=== PATIENT | female | born 1965 | race Caucasian/White ===

== ENCOUNTER → 2019-11-04 | Outpatient (CLI) | payer BC ==
[~2019-11-04] MED LIST: AMLO-504 PO; DOCU-143 PO; HYDR-4226 PO; TAMO20TA2 PO
--- NOTE | 2019-11-04 13:16 | Diagnostic Imaging Report ---
INDICATION: Right upper quadrant abdominal pain. COMPARISON: None. TECHNIQUE: Liver/gallbladder ultrasound. FINDINGS: The liver is normal in size, shape, and echotexture. There are no focal lesions. No intra or extrahepatic biliary dilatation is present. The common bile duct is not dilated and measures 4 mm. Multiple large gallstones are noted within the lumen of the gallbladder. These show expected posterior acoustic shadowing and appear to be mobile. There may be some superimposed gallbladder sludge as well. Underlying polyps may be obscured. There is no gallbladder wall thickening or pericholecystic free fluid to suggest acute cholecystitis. The pancreas is not visualized due to overlying bowel gas. There is no ascites. The right kidney measures approximately 8.4 cm in length and has an otherwise normal appearance. The visualized portions of the IVC and aorta are normal. IMPRESSION: Multiple gallstones and probable gallbladder sludge but no sonographic evidence of acute cholecystitis. Dictated by: Dictated on workstation # [id number]
== END ==
LOC: RAD 11:54
PROVIDERS: ATTEND Nurse Practitioner Family
DX: K80.20 Calculus of gallbladder without cholecystitis without obstruction (principal)
CPT/HCPCS: 76705

== ENCOUNTER 2019-11-05 15:27 | Outpatient (CLI) | payer BC ==
[~2019-11-05] VITALS: Ht 149 cm; Wt 75.0 kg
[2019-11-05] MEDS ORDERED: TAMO20TA2 PO (15:52)
[2019-11-05] MEDS ORDERED: AMLO-504 PO (15:52)
[2019-11-06] MEDS ORDERED: HYDR-4226 PO (10:39)
[2019-11-06] MEDS ORDERED: DOCU-143 PO (10:39)
== END 2019-11-05 16:02 | disposition home or self-care (01) ==
LOC: PREOP 15:27
PROVIDERS: ATTEND Surgery
DX: Z01.818 Encounter for other preprocedural examination (principal)

== ENCOUNTER 2019-11-06 07:55 | Day surgery (SDC) | payer BC ==
[2019-11-06] VITALS (12 sets, daily range): BP systolic 107–129; BP diastolic 49–91
[~2019-11-06] VITALS: Ht 149 cm; Wt 75.0 kg
[~2019-11-06 07:55] MED LIST changes: -DOCU-143 PO; -HYDR-4226 PO
--- OUTSIDE RECORDS SUMMARY | 2019-11-06 07:59 | XMS REPORT | CCD ---
Author Author Letitia Seay Organization Irene Johnson MD, [facility] Address [address] [place] [address] Phone Care Team Providers Care Cooker Process Cheese Name Role Phone PP Unavailable CCM Unavailable Summary Purpose Interface Exchange Insurance Providers Payer name Policy type / Coverage type Covered green party ID Effective Begin Date Effective End Date Blue Cross Blue [facility] e Cross/Blue Shield [id number] 2018 Un known Family history Father Diagnosis Age At Onset Hyperlipidemia Unknown Hypertension Unknown Mother Diagnosis Age At Onset No Family Disease Entered N/A Brother Diagnosis Age At Onset Diabetes mellitus Type 2 Unknown Social History Social History Element Codes Description Effective Dates Marital status Unknown M genet denise 08/27/2018 Number of children Unknown 2 08/27/[address]: 410308985 Never smoker 08/27/[address]: 231083398 Never drinks alcohol 08/27/2018 Allergies, Adverse Reactions, Alerts Substance Reaction Codes Entered Date Inactivated Date Status Penicillin Unknown 08/27/2018 No In active Date Active Past Medical History Illness Codes Condition Status Onset Date Resolved Date Essential (primary) hypertension ICD-9: 401.1 ICD-10: I10 Active 08/27/2018 Unknown Problems Condition Codes Effectiv e Dates Condition Status Essential (primary) hypertension ICD-9: 401.1 ICD-10: I10 08/27/2018 Active Medications Medication Codes Instruc tions Start Date Stop Date Sta tus Fill Instructions amlodipine 5 mg-ramiro zepril 10 mg capsule RxNorm: 358868 1 Capsule(s) PO daily 08/27/2018 08/21/2019 Ac tive tamoxifen 20 mg tablet RxNorm: 357788 1 Tablet(s) PO daily No Start Date Active amlodipine 5 mg-ramiro zepril 10 mg capsule RxNorm: 348719 1 Capsule(s) PO daily No Start Date 08/26/2018 Inactive Medication Administered No Medication Administered data Immunizations No Immunization data Assessments Condition Codes Effectiv e Dates Essential (primary) hypertension ICD -10: I10 ICD-9: 401.1 08/27/2018 Reason For Visit Reason For Visit Effective Dates Notes medication follow up 08/27/2018 Results No Results data Review of Systems System Result Effective Dates Constitutional No recent illness 08/27/2018 Constitutional No chills 08/27/2018 Constitutional No diaphoresis 08/27/2018 Constitutional No fever 08/27/2018 Eyes No eye erythema Ears/Nose/Throat/Neck No nasal allergies 08/27/2018 Ears/Nose/Throat/Neck No nasal discharge 08/27/2018 Cardiovascular No chest pain/pressure 08/27/2018 Cardiovascular No dyspnea 08/27/2018 Respiratory No chest congestion 08/27/2018 Respiratory No cough Gastrointestinal No abdominal pain 08/27/2018 Gastrointestinal No constipation 08/27/2018 Gastrointestinal No diarrhea 08/27/2018 Gastrointestinal No hematochezia 08/27/2018 Gastrointestinal No melena 08/27/2018 Gastrointestinal No nausea 08/27/2018 Gastrointestinal No vomiting 08/27/2018 Musculoskeletal No joint complaint 08/27/2018 Dermatologic No rash Neurologic No alteration of consciousness 08/27/2018 Neurologic No mental status change 08/27/2018 Physical Exam Exam Name System Name It em Name Status Result Effective Dates Notes Full Exam - General 1994 Constitutional general appearance Overall: well developed 08/27/2018 None Full Exam - General 1994 Constitutional general appearance Overall: in no acute distress 08/27/2018 None Full Exam - General 1994 Constitutional general appearance Overall: well nourished 08/27/2018 None Full Exam - General 1994 Eyes conjunctiva/eyelids Overall: conjunctiva clear 08/27/2018 None Full Exam - General 1994 Eyes conjunctiva/eyelids Overall: cornea clear 08/27/2018 None Full Exam - General 1994 Eyes conjunctiva/eyelids Overall: eyelids normal 08/27/2018 None Full Exam - General 1994 Eyes pupils and irises Overall: pupils equal, round, reactive to light and accomodation 08/27/2018 None Full Exam - General 1994 Ears/Nose/Throat otoscopic exam Overall: external auditory canals clear 08/27/2018 None Full Exam - General 1994 Ears/Nose/Throat otoscopic exam Overall: tympanic membranes clear 08/27/2018 None Full Exam - General 1994 Ears/Nose/Throat lips/teeth/gingiva Overall: benign lips 08/27/2018 None Full Exam - General 1994 Ears/Nose/Throat oral cavity/pharynx/larynx Overall: oral mucosa clear 08/27/2018 None Full Exam - General 1994 Ears/Nose/Throat oral cavity/pharynx/larynx Overall: oropharyngeal mucosa clear 08/27/2018 None Full Exam - General 1994 Respiratory auscultation Overall: breath sounds clear bilaterally 08/27/2018 None Full Exam - General 1994 Respiratory respiratory effort/rhythm Overall: no retractions 08/27/2018 None Full Exam - General 1994 Respiratory respiratory effort/rhythm Overall: normal rate 08/27/2018 None Full Exam - General 1994 Cardiovascular extremities Overall: no clubbing 08/27/2018 None Full Exam - General 1994 Cardiovascular auscultation of heart Overall: regular rate 08/27/2018 None Full Exam - General 1994 Cardiovascular auscultation of heart Overall: normal heart sounds 08/27/2018 None Full Exam - General 1994 Abdomen abdominal exam Overall: no tenderness 08/27/2018 None Full Exam - General 1994 Abdomen abdominal exam Overall: normal bowel sounds 08/27/2018 None Full Exam - General 1994 Musculoskeletal gait and station Overall: normal gait 08/27/2018 None Full Exam - General 1994 Musculoskeletal gait and station Overall: normal station 08/27/2018 None Full Exam - General 1994 Musculoskeletal head and neck Overall: head atraumatic 08/27/2018 None Full Exam - General 1994 Neurologic cranial nerves Overall: crainial nerves 2 - 12 grossly intact 08/27/2018 None Full Exam - General 1994 Psychiatric orientation/consciousness Overall: oriented to person, place and time 08/27/2018 None Full Exam - General 1994 Psychiatric mood and affect Overall: normal mood and affect 08/27/2018 None Full Exam - General 1994 Psychiatric appearance Overall: well-groomed, good eye contact 08/27/2018 None Full Exam - General 1994 Chest/Breast breast/chest inspection Breast symmetry: asymmetric 08/27/2018 left mastectomy Procedures No Procedures data Vital Signs Date Vital 08/27/2018 Blood Pressure 1: 124/64 Code: 8480-6 BMI: 34.3 Code: 04508-8 Heart Rate 1: 74 bpm Height: 4'11" SpO2: 97% Weight: 170 lbs Functional Status No Functional Status data History of Present Illness Symptom Name Status Resu lt Effective Date Notes Additional Comments me dication use 08/27/2018 None Location oral intake 08/27/2018 None Advance Directives No Advance Directive data Encounters Encounter Performer Loca tion Codes Date OFFICE VISIT, NEW - LEVEL 3 Diagnosis: Essential (primary) hypertension[ICD10: I10] [facility] CPT-4: 52377 08/27/2018 Plan of Care Planned Activity Notes C odes Status Date Visit Plan: Hypertension - well con trolled - continue with current medications, continue with no added salt diet. Pt has been encouraged to exercise daily. The pt has been advised to call the office if there are any acute concerns about change in blood pressure readings at home. 08/27/2018 Patient Education: Patient Medication Summary Completed 08/27/2018 Instructions Comment . Hypertension - wel l controlled - continue with current medications, continue with no added salt diet. Pt has been encouraged to exercise daily. The pt has been advised to call the office if there are any acute concerns about change in blood pressure readings at home.
--- OUTSIDE RECORDS SUMMARY | 2019-11-06 07:59 | XMS REPORT | Continuity of Care Document ---
Author Organization Unknown Address Unknown Phone Unavailable Allergies There is no data. Medications There is no data. Problems There is no data. Procedures There is no data. Results There is no data. Encounters ACCT No. Visit Date/Time Discharge Status Pt. Type Provider Facility Loc./Unit Complaint [id number] 11/04/2019 11:54:[address] Outpatient ZEINAB RICHEY [facility] RUQ PAIN
--- OUTSIDE RECORDS SUMMARY | 2019-11-06 07:59 | XMS REPORT | CCD ---
Author Author Letitia Seay Organization Irene Johnson MD, [facility] Address [address] [place] [address] Phone Care Team Providers Care Research Nutritionist Name Role Phone PP Unavailable CCM Unavailable Summary Purpose Interface Exchange Insurance Providers Payer name Policy type / Coverage type Covered republican ID Effective Begin Date Effective End Date Blue Cross Blue [facility] e Cross/Blue Shield [id number] 2018 Un known Family history Father Diagnosis Age At Onset Hyperlipidemia Unknown Hypertension Unknown Mother Diagnosis Age At Onset No Family Disease Entered N/A Brother Diagnosis Age At Onset Diabetes mellitus Type 2 Unknown Social History Social History Element Codes Description Effective Dates Marital status Unknown M genet denise 08/27/2018 Number of children Unknown 2 08/27/[address]: 345427282 Never smoker 08/27/[address]: 116533757 Never drinks alcohol 08/27/2018 Allergies, Adverse Reactions, [...] 5 mg-ramiro zepril 10 mg capsule RxNorm: 678868 1 Capsule(s) PO daily 08/27/2018 08/21/2019 Ac tive tamoxifen 20 mg tablet RxNorm: 539104 1 Tablet(s) PO daily No Start Date Active amlodipine 5 mg-raimro zepril 10 mg capsule RxNorm: 636075 1 Capsule(s) PO daily No Start Date [...] 1: 124/64 Code: 8480-6 BMI: 34.3 Code: 83397-2 Heart Rate 1: 74 bpm Height: 4'11" [...] hypertension[ICD10: I10] [facility] CPT-4: 21836 08/27/2018 Plan of Care Planned Activity Notes [...]
--- OUTSIDE RECORDS SUMMARY | 2019-11-06 07:59 | XMS REPORT | CCD ---
Author Author Letitia Seay Organization Irene Johnson MD, [facility] Address [address] [place] [address] Phone Care Team Providers Care Carrier Loader Name Role Phone PP Unavailable CCM Unavailable Summary Purpose Interface Exchange Insurance Providers Payer name Policy type / Coverage type Covered constitution party ID Effective Begin Date Effective End Date Blue Cross Blue [facility] e Cross/Blue Shield [id number] 2018 Un known Family history Father Diagnosis Age At Onset Hyperlipidemia Unknown Hypertension Unknown Mother Diagnosis Age At Onset No Family Disease Entered N/A Brother Diagnosis Age At Onset Diabetes mellitus Type 2 Unknown Social History Social History Element Codes Description Effective Dates Marital status Unknown M genet denise 08/27/2018 Number of children Unknown 2 08/27/[address]: 358123489 Never smoker 08/27/[address]: 123186154 Never drinks alcohol 08/27/2018 Allergies, Adverse Reactions, [...] tus Fill Instructions amlodipine 5 mg-ramiro zepril 20 mg capsule RxNorm: 145301 1 Capsule(s) PO daily 08/28/2018 08/22/2019 Ac tive Voltaren 1 % topical gel RxNorm: 931223 1 Application TOP BID 08/28/2018 No Stop Date Active amlodipine 5 mg-ramiro zepril 20 mg capsule RxNorm: 810215 1 Capsule(s) PO daily 08/28/2018 08/27/2018 In active amlodipine 5 mg-ramiro zepril 10 mg capsule RxNorm: 016735 1 Capsule(s) PO daily 08/27/2018 08/21/2019 Ac tive tamoxifen 20 mg tablet RxNorm: 070121 1 Tablet(s) PO daily No Start Date Active Voltaren 1 % topical gel RxNorm: 886922 1 Application TOP BID No Start Date 08/27/2018 Inactive amlodipine 5 mg-ramiro zepril 10 mg capsule RxNorm: 333082 1 Capsule(s) PO daily No Start Date [...] 1: 124/64 Code: 8480-6 BMI: 34.3 Code: 62462-5 Heart Rate 1: 74 bpm Height: 4'11" [...] hypertension[ICD10: I10] [facility] CPT-4: 18287 08/27/2018 Plan of Care Planned Activity Notes [...]
[2019-11-06] MEDS ORDERED: CLINDAMYCIN 600 MG/50 ML IVPB 50 ML IV ONE (08:00)
[2019-11-06] MEDS ORDERED: CATHETER FLUSH 10 ML SYR IV PRN (08:30)
[2019-11-06] MEDS ORDERED: FAMOTIDINE 20MG/2ML IV (PEPCID) ONE (08:31)
[2019-11-06] MEDS ORDERED: ONDANSETRON 4 MG/2 ML (SDV) Z0FRAN ONE ×2 (08:31→08:56)
[2019-11-06] MEDS ORDERED: SCOPOLAMINE 1.5 MG (TRANSDERM-SCOP) PATCH ONE (08:31)
--- NOTE | 2019-11-06 08:34 | Progress Note-Pre Operative ---
Pre-Operative Progress Note H&P Reviewed The H&P was reviewed, patient examined and no changes noted. Date Seen by Provider: Nov 06, 2019 Time Seen by Provider: 08:34 Date H&P Reviewed: Nov 06, 2019 Time H&P Reviewed: 08:34 Pre-Operative Diagnosis: symptomatic cholelithiasis, epigastric abdominal pain BRETT HATFIELD DO Nov 06, 2019 08:34
[2019-11-06 08:43] LABS: BASOPHILS % (AUTO) 1 % (0-10); EOSINOPHILS # (AUTO) 0.2 10^3/uL (0.0-0.3); EOSINOPHILS % (AUTO) 3 % (0-10); HEMATOCRIT 40 % (35-52); HEMOGLOBIN 13.4 G/DL (11.5-16.0); LYMPHOCYTES % (AUTO) 33 % (12-44); MEAN CORPUSCULAR HEMOGLOBIN 32 PG (25-34); MEAN CORPUSCULAR HGB CONC 34 G/DL (32-36); MEAN CORPUSCULAR VOLUME 93 FL (80-99); MEAN PLATELET VOLUME 10.2 FL (7.4-10.4); MONOCYTES # (AUTO) 0.5 X 10^3 (0.0-1.0); MONOCYTES % (AUTO) 8 % (0-12); NEUTROPHILS # (AUTO) 3.5 X 10^3 (1.8-7.8); NEUTROPHILS % (AUTO) 56 % (42-75); PLATELET COUNT 277 10^3/uL (130-400); RED CELL DISTRIBUTION WIDTH 12.8 % (10.0-14.5); WHITE BLOOD COUNT 6.2 10^3/uL (4.3-11.0)
[2019-11-06] MEDS: LACTATED RINGERS 1,000 ML IV PRN ×2 (08:43→10:22)
[2019-11-06] MEDS ORDERED: ONDANSETRON 4 MG/2 ML (SDV) Z0FRAN IV ONE (08:45)
[2019-11-06] MEDS ORDERED: FAMOTIDINE 20MG/2ML IV (PEPCID) IV ONE (08:45)
[2019-11-06] MEDS ORDERED: SCOPOLAMINE 1.5 MG (TRANSDERM-SCOP) PATCH TOP ONE (08:45)
[2019-11-06] MEDS ORDERED: ROCURONIUM 10 MG/ML 5 ML SYRINGE IV ONE (08:56)
[2019-11-06] MEDS ORDERED: proPOfol 200 MG/20 ML (DIPRIVAN) VIAL IV ONE ×2 (08:56→10:08)
[2019-11-06] MEDS ORDERED: LIDOCAINE PF 2% 5 ML (XYLOCAINE) VIAL ONE (08:56)
[2019-11-06] MEDS ORDERED: SEVOFLURANE (ULTANE) 15 ML INHAL SOLN ONE (08:56)
[2019-11-06] MEDS ORDERED: MIDAZOLAM 2 MG/2 ML (VERSED) VIAL ONE (08:57)
[2019-11-06] MEDS ORDERED: GLYCOPYRROLATE 0.2 MG/ML (ROBINUL) 2 ML VIAL ONE ×2 (08:57→10:28)
[2019-11-06] MEDS ORDERED: SUCCINYLCHOLINE INJ 100 MG/5 ML SYR ONE (08:57)
[2019-11-06] MEDS ORDERED: fentaNYL INJECTION 100 MCG/2 ML AMP ONE (08:57)
[2019-11-06] MEDS ORDERED: NEOSTIGMINE 3 MG/3 ML VIAL ONE ×2 (08:57→10:28)
[2019-11-06] MEDS ORDERED: IOPAMIDOL 61% 30 ML (ISOVUE 300) VIAL ONE (09:06)
[2019-11-06] MEDS ORDERED: BUP/EPI 0.5% 1:200,000 (SENSORCAINE) 30 ML VIAL ONE (09:06)
[2019-11-06] MEDS ORDERED: PROPOFOL INJECTION 100 ML IV ONE (10:08)
--- NOTE | 2019-11-06 10:37 | Progress Note-Post Operative ---
Post-Operative Progess Note Surgeon (s)/Geothermal Sheet Metal Worker (s) Surgeon BRETT HATFIELD DO Geothermal Sheet Metal Worker: Dr. Toro to assist with retraction dissection and closure. Pre-Operative Diagnosis symptomatic cholelithiasis, epigastric abdominal pain Post-Operative Diagnosis symptomatic cholelithiais, epigastric abdominal pain, small filling defect likely air in cbd Procedure & Operative Findings Date of Procedure 11/06/19 Procedure Performed/Findings PROCEDURE: Laparoscopic cholecystectomy with intraoperative cholangiogram. COMPLICATIONS: None. INDICATION: Patient is a 53 year old female with increasing severe abdominal pain over last two weeks. Unable to eat. Ultrasound having multiple stones. Was discussed risks and benefits of procedure and wishes to proceed. PROCEDURE: The patient was taken to the operating suite and was prepped and draped in sterile fashion. A surgical pause was performed. Just superior to the umbilicus, a 12 mm incision was made. Dissection was taken down to the fascia, which was then scored and grasped with a Ruma and the abdomen was then entered. A 0 Vicryl suture was placed in a [id number] fashion and a Robledo trocar was placed and secured. Pneumoperitoneum was achieved. A 5mm trochar place in the subxyphoid and 2 in the right upper quadrant. The gallbladder was then grasped and elevated. The cystic duct, and cystic artery were then dissected out. Clip was placed on the distal portion of the cystic duct which was then partially transected. An arrow catheter was inserted into the duct. The cholangiogram was then performed. Small filing defect in common bile duct believe it is bubble of air, and contrast made its way into the duodenum. Catheter removed. Clips were placed on proximal portion of the cystic duct and then the duct was then transected. Clips were placed along the proximal and distal portion of the cystic artery which was then transected. Hook cautery was used to dissect the gallbladder from the gallbladder fossa achieving hemostasis. The gallbladder was placed in an Endobag and removed through the 12 mm trocar site. The abdomen was then reinspected. Copious amounts of irrigation were used to irrigate the abdomen and there were no signs of active bleeding. Hemostasis had been achieved. The 12 mm fascial defect was then closed with 0 Vicryl suture that had been placed in a [id number] fashion. The abdomen was then desufflated, the trocars were removed. The abdomen was then washed and dried. The skin was then closed using 4-0 Monocryl in a subcuticular fashion. The abdomen was washed and dried and Skin Affix was place over incisions. Patient tolerated the procedure well without any complications and was taken to the recovery room in stable condition. Anesthesia Type general Estimated Blood Loss Estimated blood loss (mL): min Specimens/Packing Specimens Removed gallbladder BRETT HATFIELD DO Nov 06, 2019 10:37
[2019-11-06] MEDS ORDERED: HYDR-4226 PO ×2 (10:39)
[2019-11-06] MEDS ORDERED: DOCU-143 PO ×2 (10:39)
--- NOTE | 2019-11-06 10:39 | Discharge Inst-Simple/Standard ---
Discharge Inst-Standard Discharge Medications New, Converted or Re-Newed RX: RX on Chart Patient Instructions/Follow Up Plan of Care/Instructions/FU: 3 weeks Julio Cesar Activity as Tolerated: No Discharge Diet: Regular Diet Other Inst to Patient Follow up Appt: Make appointment for 3 weeks. Instructions: No lifting greater than 10 pounds. No strenuous activity. May shower in 24 hours, no tub bath or soaking. Use incentive spirometer at home as directed. No Smoking Skin/Wound Care: You have special glue over incision, it will fall off on it's own. Symptoms to Report: Appetite Changes, Extremity Discoloration, Numbness/Tingling, Swelling Increased, Bleeding Excessive, Eyesight Changes, Pain Increased, Urine Color Change, Constipation(Persistent), Fever over 101 degree F, Pain/Pressure in ches t, Urinating Difficulty, Cough Up/Vomit Blood, Heart Beat Irreg/Pounding, Pain/Pressure in jaw, Vaginal Bleeding Increase, Cramps in feet or legs, Lightheadedness, Pain/Pressure in shoulder, Diarrhea(Persistent), Memory Changes Suddenly, Questions/Concerns, Weight gain consecutive days, Dizziness/Fainting, Nausea/Vomiting, Shortness of Breath, Weight gain over 2 pounds. If eyes or skin turn yellow notify physician. If questions or concerns contact your physician Or seek help at emergency department. BRETT HATFIELD DO Nov 06, 2019 10:39
[2019-11-06] MEDS ORDERED: ONDANSETRON 4 MG/2 ML (SDV) Z0FRAN IVP PRN (11:00)
[2019-11-06] MEDS ORDERED: MEPERIDINE (DEMEROL) INJ 50 MG/ML IVP ONE (11:00)
[2019-11-06] MEDS ORDERED: fentaNYL INJECTION 100 MCG/2 ML AMP IVP ONE (11:00)
[2019-11-06] MEDS ORDERED: morphine INJ 10 MG/ML 1ML (SYR OR VIAL) IVP ONE (11:00)
--- NOTE | 2019-11-06 11:31 | Diagnostic Imaging Report ---
INDICATION: Cholelithiasis. FINDINGS: Fluoroscopy was provided in the OR during intraoperative cholangiogram. 13 seconds of fluoroscopic time was utilized. Images demonstrate contrast being injected via the cystic duct remnant. There are several tiny filling defects in the common duct which likely represent small air bubbles. Contrast does flow into the duodenum. The intrahepatic ducts are not well visualized. IMPRESSION: Fluoroscopy for intraoperative cholangiogram. Dictated by: Dictated on workstation # [id number]
--- NOTE | 2019-11-06 11:55 | Anesthesia-General Post-Op ---
General Patient Condition Mental Status/LOC: Same as Preop Cardiovascular: Satisfactory Nausea/Vomiting: Absent Respiratory: Satisfactory Pain: Controlled Complications: Absent Post Op Complications Complications None Follow Up Care/Instructions Patient Instructions None needed. Anesthesia/Patient Condition Patient Condition Patient is doing well, no complaints, stable vital signs, no apparent adverse anesthesia problems. No complications reported per nursing. SHAKIRA STYLES CRNA Nov 06, 2019 11:55
[2019-11-06] MEDS ORDERED: HYDROcodone/APAP 5 MG/325 MG (LORTAB) TAB ONE (12:17)
[2019-11-06] MEDS ORDERED: HYDROcodone/APAP 5 MG/325 MG (LORTAB) TAB PO ONE (12:30)
== END 2019-11-06 13:30 | disposition home or self-care (01) ==
LOC: SDC 07:55
PROVIDERS: ATTEND Surgery
DX: K80.10 Calculus of gallbladder with chronic cholecystitis without obstruction (principal); Z11.2 Encounter for screening for other bacterial diseases; I10 Essential (primary) hypertension; Z79.899 Other long term (current) drug therapy; Z88.0 Allergy status to penicillin
CPT/HCPCS: 36415; 84703; 85025; 87081

== ENCOUNTER → 2021-10-26 | Outpatient (CLI) | payer BC, OTHER ==
[~2021-10-26] MED LIST changes: +DOCU-143 PO; +HYDR-4226 PO
--- NOTE | 2021-10-26 12:24 | Diagnostic Imaging Report ---
INDICATION: Right elbow pain, fall. TIME OF EXAM: 10:54 AM 3 views of the right elbow were obtained. Alignment is normal. Joint spaces are well-maintained. No fracture, dislocation or effusion is detected. IMPRESSION: No acute bony abnormality is detected. Dictated by: Dictated on workstation # [id number]
== END ==
LOC: RAD 10:23
PROVIDERS: ATTEND Nurse Practitioner Family
DX: M25.521 Pain in right elbow (principal); W19.XXXA Unspecified fall, initial encounter
CPT/HCPCS: 73080